=== PATIENT | male | born 1955 | race Caucasian/White ===

== ENCOUNTER 2017-10-06 17:11 | Inpatient (IN) | payer BC ==
[~2017-10-06] VITALS: Ht 193 cm; Wt 99.3 kg
[~2017-10-06 17:11] MED LIST: CEPH500 PO; IBUP600 PO
[2017-10-06] MEDS ORDERED: Lovastatin20 MG PO (17:20)
[2017-10-06 17:52] LABS: BASOPHILS ABSOLUTE AUTO 0.04 K/mm3 (0.00-0.23); BASOPHILS PERCENT AUTO 1 % (0-2); EOSINOPHILS ABSOLUTE AUTO 0.14 K/mm3 (0.00-0.68); EOSINOPHILS PERCENT AUTO 3 % (0-6); Hematocrit 42.1 % (37.0-53.0); Hemoglobin 13.9 g/dL (13.5-17.5); IMMATURE GRAN ABSOLUTE AUTO 0.02 K/mm3 (0.00-0.10); IMMATURE GRAN PERCENT AUTO 0 % (0-1); LYMPHOCYTES ABSOLUTE AUTO 2.16 K/mm3 (0.84-5.20); LYMPHOCYTES PERCENT AUTO 38 % (21-46); MONOCYTES ABSOLUTE AUTO 0.44 K/mm3 (0.16-1.47); MONOCYTES PERCENT AUTO 8 % (4-13); Mean Corpuscular HGB 29.1 pg (26.0-34.0); Mean Corpuscular Volume 88 fL (80-100); Mean Platelet Volume 10.5 fL (9.1-12.4); NEUTROPHILS ABSOLUTE AUTO 2.89 K/mm3 (1.96-9.15); NEUTROPHILS PERCENT AUTO 51 % (41-73); Platelet Count 195 K/mm3 (150-400); RDW Coefficient Variation 13.2 % (11.7-14.2); RDW Standard Deviation 42.3 fL (35.1-46.3); Red Blood Cell Count 4.78 M/mm3 (4.30-5.90); White Blood Cell Count 5.69 K/mm3 (4.00-11.30)
[2017-10-06 18:16] LABS: Alanine Aminotransfer (ALT/SGP 33 U/L (12-78); Albumin, Blood 4.3 g/dL (3.4-5.0); Albumin/Globulin Ratio 1.3 (0.8-1.8); Alk Phos 90 U/L (50-136); Anion Gap 4 mmol/L (6-16); Aspartate Aminotrans (AST/SGOT 30 U/L (12-37); Bilirubin, Total 0.4 mg/dL (0.1-1.0); Blood Urea Nitrogen 21 mg/dL (8-24); Bun/Creatinine Ratio 22.8 (12.0-20.0); CO2, Blood 27 mmol/L (21-32); Calcium, Blood 8.7 mg/dL (8.5-10.1); Chloride, Blood 109 mmol/L (98-108); Creatinine, Blood 0.92 mg/dL (0.60-1.20); Globulin, Blood 3.3 g/dL (2.2-4.0); Glomerular Filtration Rate >60 (60-); Glucose, Blood 119 mg/dL (70-99); Sodium, Blood 140 mmol/L (136-145); Total Protein, Blood 7.6 g/dL (6.4-8.2)
[2017-10-06] MEDS ORDERED: GLUCOSAMINE CHONDROI (21:24)
[2017-10-06] MEDS ORDERED: Hair, Skin & N1 EACH PO (21:24)
[2017-10-06 21:41] LABS: CHOL/HDL RATIO 4.1; Cholesterol 154 mg/dL (50-200); HDL Cholesterol 38 mg/dL (>39); LDL/HDL RATIO 2.1; Low Density Lipoprotein Chol 81 mg/dL (0-110); Triglycerides 174 mg/dL (30-160); Very Low Density Lipoprot Chol 34 mg/dL (6-32)
[2017-10-06 22:48] LABS: Source, Urine Clean Catch
[2017-10-06 22:50] LABS: Appearance, Urine Clear (Clear); Bilirubin, Urine Neg (Neg); Blood, Urine Neg (Neg); Color, Urine Yellow (P-Yellow); Glucose Qualitative, Urine Neg (Neg); Ketones, Urine Neg (Neg); Leukocyte Esterase, Urine Neg (Neg); Nitrite, Urine Neg (Neg); Protein, Urine Neg (Neg); Specific Gravity, Urine 1.015 (1.003-1.022); Urobilinogen, Urine NORM (Normal); pH, Urine 6.5 (5.0-8.0)
[2017-10-07 04:48] LABS: BASOPHILS ABSOLUTE AUTO 0.03 K/mm3 (0.00-0.23); BASOPHILS PERCENT AUTO 1 % (0-2); EOSINOPHILS ABSOLUTE AUTO 0.16 K/mm3 (0.00-0.68); EOSINOPHILS PERCENT AUTO 3 % (0-6); Hematocrit 39.8 % (37.0-53.0); Hemoglobin 13.4 g/dL (13.5-17.5); IMMATURE GRAN ABSOLUTE AUTO 0.01 K/mm3 (0.00-0.10); IMMATURE GRAN PERCENT AUTO 0 % (0-1); LYMPHOCYTES ABSOLUTE AUTO 2.28 K/mm3 (0.84-5.20); LYMPHOCYTES PERCENT AUTO 41 % (21-46); MONOCYTES ABSOLUTE AUTO 0.51 K/mm3 (0.16-1.47); MONOCYTES PERCENT AUTO 9 % (4-13); Mean Corpuscular HGB 29.3 pg (26.0-34.0); Mean Corpuscular HGB Conc 33.7 g/dL (31.5-36.5); Mean Corpuscular Volume 87 fL (80-100); Mean Platelet Volume 10.7 fL (9.1-12.4); NEUTROPHILS ABSOLUTE AUTO 2.58 K/mm3 (1.96-9.15); NEUTROPHILS PERCENT AUTO 46 % (41-73); Platelet Count 181 K/mm3 (150-400); RDW Coefficient Variation 13.3 % (11.7-14.2); RDW Standard Deviation 41.8 fL (35.1-46.3); Red Blood Cell Count 4.57 M/mm3 (4.30-5.90); White Blood Cell Count 5.57 K/mm3 (4.00-11.30)
[2017-10-07 05:06] LABS: Alanine Aminotransfer (ALT/SGP 29 U/L (12-78); Albumin, Blood 3.7 g/dL (3.4-5.0); Albumin/Globulin Ratio 1.2 (0.8-1.8); Alk Phos 75 U/L (50-136); Anion Gap 7 mmol/L (6-16); Aspartate Aminotrans (AST/SGOT 22 U/L (12-37); Bilirubin, Total 0.3 mg/dL (0.1-1.0); Blood Urea Nitrogen 17 mg/dL (8-24); Bun/Creatinine Ratio 21.1 (12.0-20.0); CO2, Blood 26 mmol/L (21-32); Calcium, Blood 8.6 mg/dL (8.5-10.1); Chloride, Blood 110 mmol/L (98-108); Globulin, Blood 3.1 g/dL (2.2-4.0); Glomerular Filtration Rate >60 (60-); Glucose, Blood 93 mg/dL (70-99); Potassium, Blood 3.7 mmol/L (3.5-5.5); Sodium, Blood 143 mmol/L (136-145); Total Protein, Blood 6.8 g/dL (6.4-8.2)
[2017-10-07] MEDS ORDERED: ASPI81CH PO (12:15)
== END 2017-10-08 10:42 | disposition home or self-care (01) | DRG 103 ==
LOC: ER 17:11 → MEDS 17:12 → ER 17:12 → MEDS 17:12 → ENPENDDIS 10-07 09:51 → MEDS 10-07 16:51
PROVIDERS: Internal Medicine
DX: G43.109 Migraine with aura, not intractable, without status migrainosus (principal); G45.9 Transient cerebral ischemic attack, unspecified; E78.5 Hyperlipidemia, unspecified; G60.9 Hereditary and idiopathic neuropathy, unspecified
CPT/HCPCS: 36415; 70450; 70496; 70498; 70551; 72141; 80053; 80061; 81003; 83605; 85025; 85730; 93005; 93010; 93306; 96372; 99285; J1650; J1953; J7030; Q9967

== ENCOUNTER 2018-07-16 15:22 | Emergency (ER) | payer OTHER, BC ==
[~2018-07-16] VITALS: Ht 193 cm; Wt 93.0 kg
[~2018-07-16 15:22] MED LIST changes: +ASPI81CH PO; +GLUCOSAMINE CHONDROI; +Hair, Skin & N1 EACH PO; +Lovastatin20 MG PO
[2018-07-16] MEDS ORDERED: Percocet 5-3251 EACH PO (16:48)
== END 2018-07-16 17:18 | disposition home or self-care (01) ==
LOC: ER 15:22
DX: S20.212A Contusion of left front wall of thorax, initial encounter (principal); Z79.899 Other long term (current) drug therapy; V47.5XXA Car driver injured in collision with fixed or stationary object in traffic accident, initial encounter
CPT/HCPCS: 71046; 72040; 99284-25

== ENCOUNTER → 2025-01-04 | Outpatient (CLI) | payer BC ==
[~2025-01-04] MED LIST changes: +Percocet 5-3251 EACH PO; +ROSUVASTATIN CA20 MG PO; +Robaxin750 MG PO; +TESTOSTERO200 MG/1 M IM
[2025-01-04 11:25] LABS: BASOPHILS ABSOLUTE AUTO 0.04 K/mm3 (0.00-0.23); BASOPHILS PERCENT AUTO 1 % (0-2); EOSINOPHILS ABSOLUTE AUTO 0.10 K/mm3 (0.00-0.68); EOSINOPHILS PERCENT AUTO 2 % (0-6); Hematocrit 44.3 % (37.0-53.0); Hemoglobin 14.9 g/dL (13.5-17.5); IMMATURE GRAN ABSOLUTE AUTO 0.01 K/mm3 (0.00-0.10); IMMATURE GRAN PERCENT AUTO 0 % (0-1); LYMPHOCYTES ABSOLUTE AUTO 1.77 K/mm3 (0.84-5.20); LYMPHOCYTES PERCENT AUTO 33 % (21-46); MONOCYTES ABSOLUTE AUTO 0.46 K/mm3 (0.16-1.47); MONOCYTES PERCENT AUTO 9 % (4-13); Mean Corpuscular HGB Conc 33.6 g/dL (31.5-36.5); Mean Corpuscular Volume 88 fL (80-100); NEUTROPHILS ABSOLUTE AUTO 2.97 K/mm3 (1.96-9.15); NEUTROPHILS PERCENT AUTO 56 % (41-73); NRBC ABSOLUTE 0.00 K/mm3 (0.00-0.02); NRBC Auto 0.0 /100 WBC (0.0-0.2); Platelet Count 201 K/mm3 (150-400); RDW Coefficient Variation 13.0 % (11.7-14.2); RDW Standard Deviation 41.8 fL (35.1-46.3)
[2025-01-04 11:45] LABS: Alanine Aminotransfer (ALT/SGP 31 U/L (12-78); Albumin, Blood 3.7 g/dL (3.4-5.0); Albumin/Globulin Ratio 1.0 (0.8-1.8); Anion Gap 6 mmol/L (3-11); Aspartate Aminotrans (AST/SGOT 22 U/L (12-37); Bilirubin, Total 0.5 mg/dL (0.1-1.0); Blood Urea Nitrogen 17 mg/dL (8-24); CHOL/HDL RATIO 5.2; CO2, Blood 28 mmol/L (21-32); Calcium, Blood 8.6 mg/dL (8.5-10.1); Chloride, Blood 108 mmol/L (98-108); Cholesterol 218 mg/dL (50-200); Creatinine, Blood 0.95 mg/dL (0.60-1.20); Globulin, Blood 3.8 g/dL (2.2-4.0); Glucose, Blood 98 mg/dL (70-99); HDL Cholesterol 42 mg/dL (>39); LDL/HDL RATIO 3.7; Low Density Lipoprotein Chol 154 mg/dL (0-110); Potassium, Blood 4.0 mmol/L (3.5-5.5); Sodium, Blood 138 mmol/L (136-145); Total Protein, Blood 7.5 g/dL (6.4-8.2); Triglycerides 111 mg/dL (30-160); Very Low Density Lipoprot Chol 22 mg/dL (6-32)
== END ==
LOC: LAB 10:32 → LAB SHORT 10:32
PROVIDERS: Family Medicine
DX: E29.1 Testicular hypofunction (principal)
CPT/HCPCS: 80053; 80061; 84403; 85025